=== PATIENT | female | born 1995 | race Caucasian/White ===

== ENCOUNTER 2024-11-04 17:51 | Emergency (ER) | payer MEDICAID ==
[~2024-11-04] VITALS: Ht 167.6 cm; Wt 76.8 kg
[2024-11-04 18:19] VITALS: BP 123/73; PULSE 82; RESP 20; TEMP 97.9; O2SAT 99
[2024-11-04] MEDS: KETOROLAC TROMETH 60MG/2ML VIAL IM ONE (20:12)
[2024-11-04] MEDS: CYCLOBENZAPRINE HCL 10 MG TAB PO ONE (20:12)
--- NOTE | 2024-11-04 20:18 | DVH ---
XY R SHOULDER 2+ VIEW XRAY INDICATION: injury pain TECHNICAL DATA: 3 views were obtained of the right shoulder. COMPARISON: None FINDINGS: There is no fracture or focal bone abnormality. The glenohumeral joint is normally maintained. The ac romioclavicular joint appears normal. The humeral head is not high riding. Adjacent soft tissues are within normal limits. Degenerative changes are noted involving the visualized spine. IMPRESSION: No acute fracture or dislocation of the right shoulder.
[2024-11-04] MEDS ORDERED: TIZA10TA PO (20:45)
[2024-11-04] MEDS ORDERED: METH4PAK PO (20:45)
[2024-11-04] MEDS ORDERED: LIDO5DIS21 TOP (20:45)
--- NOTE | 2024-11-04 20:45 | ED.PDOC ---
Back pain HPI HPI Comments This is a 29-year-old female presents to the ED chief complaint right shoulder pain x2 weeks. Patient states she was wrestling with another person in her right shoulder was twisted all the way back she notes sudden onset of pain 10/10 on pain scale sharp and achy in nature has been taking [id number] medications with little relief. Denies numbness, weakness, or any other known injury. Chief Complaint: Upper Extremity Time Seen by MD: 18:15 Reviewed Notes: Nurses Notes, Medications, Allergies Allergies: Coded Allergies: NO KNOWN ALLERGIES (Unverified , 11/04/24) Home Meds Active Scripts Lidocaine (LIDODERM 5% TOPICAL PATCH) 1 Patch Ph, 1 PATCH TOP DAILY PRN for 5 Days, #5 PATCH Prov:TINA TRUJILLOP 11/04/24 Methylprednisolone (Medrol Dosepak) 4 Mg Elder, 4 MG PO UD for 6 Days, #21 TAB UAD Prov:RONNIETINA IrvinP 11/04/24 Tizanidine Hydrochloride (Tizanidine Hydrochloride) 4 Mg Tab, 4 MG PO BID PRN for 7 Days, #14 TAB Prov:FAISAL TRUJILLODebbie WATSONP 11/04/24 Information Source: Patient Mode of Arrival: Ambulatory Past Medical History PAST MEDICAL HISTORY: Denies Surgical History: Denies all surgeries CUSTOMER SUCCESS DIRECTOR History: No Pertinent CUSTOMER SUCCESS DIRECTOR History Family History Family History: Reviewed,noncontributory to illness Social History Smoker: Non-Smoker Alcohol: Denies ETOH Use Drugs: Denies Drug Use Constitutional: denies: chills, diaphoresis, fatigue, fever, malaise, sweats, weakness, others EENTM: denies: blurred vision, double vision, ear bleeding, ear discharge, ear drainage, ear pain, ear ringing, eye pain, eye redness, hearing loss, mouth pain, mouth swelling, nasal discharge, nose bleeding, nose congestion, nose pain, photophobia, tearing, throat pain, throat swelling, voice changes, others Respiratory: denies: cough, hemoptysis, orthopnea, SOB at rest, shortness of breath, SOB with excertion, stridor, wheezing, others Cardiovascular: denies: chest pain, dizzy spells, diaphoresis, Dyspnea on exertion, edema, irregular heart beat, left arm pain, lightheadedness, palpitations, PND, syncope, others Gastrointestinal: denies: abdomen distended, abdominal pain, blood streaked bowels, constipated, diarrhea, dysphagia, difficulty swallowing, hematemesis, melena, nausea, poor appetite, poor fluid intake, rectal bleeding, rectal pain, vomiting, others Genitourinary: denies: abnormal vagina bleeding, burning, dyspareunia, dysuria, flank pain, frequency, hematuria, incontinence, pain, , vagina discharge, urgency, others Neurological: denies: dizziness, fainting, headache, left sided numbness, left sided weakness, numbness, paresthesia, pre-existing deficit, right sided numbness, right sided weakness, seizure, speech problems, tingling, tremors, weakness, others Musculoskeletal: reports: others (Right shoulder pain); denies: back pain, gout, joint pain, joint swelling, muscle pain, muscle stiffness, neck pain Physical Exam General Appearance: No Apparent Distress, Normal HEENT: Pharynx Normal Neck: Full Range of Motion, Non-Tender Respiratory: Accessory Muscle Use, Chest Non-Tender, Lungs Clear, No Respiratory Distress, Normal Breath Sounds Cardiovascular: No Murmur, Normal Peripheral Pulses, Regular Rate/Rhythm Breast Exam: Deferred Gastrointestinal: Non Tender, Soft Genitalia: Deferred Pelvic: Deferred Rectal: Deferred Extremities: Normal capillary refill, Normal inspection, Normal range of motion, Non-tender, No pedal edema Musculoskeletal : Location: Right Extremity Location: Shoulder (Tenderness palpated over anterior and posterior shoulder musculature. Full range of motion with moderate discomfort. Strength sensory and motion intact positive radial pulse.) Apperance: Normal Neurologic: Alert, fugitive investigator II-XII nml as Tested, No Motor Deficits, Normal Affect, Normal Mood, No Sensory Deficits Cerebellar Function: Normal Reflexes: Normal Skin: Dry, Normal Color, Warm Lymphatic: No Adenopathy Was a procedure done? Was a procedure done?: No Back Pain Differential Dx Differential Diagnosis: Fracture, Musculoskeletal Pain X-Ray, Labs, Meds, VS Vital Signs Date Time Temp Pulse Resp B/P (MAP) Pulse Ox O2 Delivery O2 Flow Rate FiO2 11/04/24 18:19 97.9 82 20 123/73 (90) 99 Current Medications Medications (Trade) Dose Ordered Sig/Ciarra Route Start Time Stop Time Status Last Admin Ketorolac Tromethamine (Toradol Injection) 60 mg ONCE ONCE IM 11/04/24 19:15 11/04/24 19:16 DC 11/04/24 20:12 Cyclobenzaprine HCl (Flexeril Tablet) 5 mg ONCE ONCE PO 11/04/24 19:15 11/04/24 19:16 DC 11/04/24 20:12 X-Ray, Labs, Meds, VS Comment Right shoulder x-ray shows no acute findings or osseous lesions. Likely shoulder muscle strain. Patient given Toradol 60 mg IM along with Flexeril 5 mg p.o. she reports improvement in pain and function requesting discharge at this time. Patient placed in sling script muscle relaxer and Medrol Dosepak. Advised to follow up with her PCP in 2-3 days consider further imaging such as MRI if no improvement. ER return precautions given patient agrees with discharge plan of care. Time of 1ST Reevaluation: 20:40 Reevaluation 1ST: Improved Patient Education/Counseling: Diagnosis, Treatment, Prognosis, Need For Follow Up Family Education/Counseling: No Family Present Departure 1 Departure Time of Disposition: 20:41 Impression: Primary Impression: Left shoulder strain Qualified Codes: S46.912A - Strain of unspecified muscle, fascia and tendon at shoulder and upper arm level, left arm, initial encounter Disposition: HOME / SELF CARE / HOMELESS Condition: Stable e-Prescriptions Lidocaine (LIDODERM 5% TOPICAL PATCH) 1 Patch Ph 1 PATCH TOP DAILY PRN for 5 Days, #5 PATCH Prov: TNIA TRUJILLO 11/04/24 Methylprednisolone (Medrol Dosepak) 4 Mg Elder 4 MG PO UD for 6 Days, #21 TAB UAD Prov: TINA TRUJILLO 11/04/24 Tizanidine Hydrochloride (Tizanidine Hydrochloride) 4 Mg Tab 4 MG PO BID PRN for 7 Days, #14 TAB Prov: TINA TRUJILLO 11/04/24 Discharged With: Self Critical Care Note Critical Care Time?: No Stability Stability form required: TINA Alba Nov 04, 2024 20:45
== END 2024-11-04 21:23 | disposition home or self-care (01) ==
LOC: ER 17:51
DX: S46.912A Strain of unspecified muscle, fascia and tendon at shoulder and upper arm level, left arm, initial encounter (principal); Z79.899 Other long term (current) drug therapy; W50.2XXA Accidental twist by another person, initial encounter; Y93.72 Activity, wrestling; Y92.89 Other specified places as the place of occurrence of the external cause; Y99.8 Other external cause status
CPT/HCPCS: 73030; 96372; 99283; J1885